=== PATIENT | male | born 1995 | race African-American/Black ===

== ENCOUNTER 2023-11-15 13:08 | Emergency (ER) | payer OTHER ==
[~2023-11-15] VITALS: Ht 190.5 cm; Wt 90.0 kg
[2023-11-15 13:28] VITALS: BP 125/71; PULSE 94; RESP 20; O2SAT 100
[2023-11-15] MEDS: BACITRACIN ZINC OINT UDPKT TOP ONE (15:17)
[2023-11-15 15:30] VITALS: TEMP 98.4
[2023-11-15] MEDS: ACETAMINOPHEN 500MG TABLET PO ONE (15:30)
== END 2023-11-15 16:01 | disposition home or self-care (01) ==
LOC: ER 13:08
DX: S90.812A Abrasion, left foot, initial encounter (principal); S90.811A Abrasion, right foot, initial encounter; W01.0XXA Fall on same level from slipping, tripping and stumbling without subsequent striking against object, initial encounter; Y93.55 Activity, bike riding; Y92.89 Other specified places as the place of occurrence of the external cause; Y99.8 Other external cause status
CPT/HCPCS: 99282; Z7610